=== PATIENT | male | born 1945 | race Caucasian/White ===

== ENCOUNTER 2021-12-17 12:00 | Emergency (ER) | payer MEDICARE ==
[2021-12-17] VITALS (8 sets, daily range): BP systolic 88–118; BP diastolic 56–67
[~2021-12-17] VITALS: Ht 172.7 cm; Wt 81.8 kg
[2021-12-17] MEDS ORDERED: ALEVE220 M2 PO (12:20)
[2021-12-17 13:54] LABS: HEMOGLOBIN 10.8 g/dl (14.0-18.0); IMMATURE GRANULOCYTES 0.1 % (0.0-5.0); MEAN CELL VOLUME 86.1 fL CALC (80.0-100.0); MEAN CORPUSCULAR HGB 27.3 pG CALC (26.0-32.0); MEAN CORPUSCULAR HGB CONC 31.8 g/dL CAL (32.0-36.0); NEUT# 5.46 thou/uL (1.82-7.42); RED BLOOD COUNT 3.95 mill/uL (4.70-6.10); RED CELL DISTRI WIDTH 15.8 % (11.5-15.5)
[2021-12-17 14:12] LABS: ALBUMIN 3.8 g/dL (3.2-5.0); ALKALINE PHOSPHATASE 53 u/l (38-126); ANION GAP 11 (6-22 (CALC)); BILIRUBIN, TOTAL 0.4 mg/dL (0.0-1.4); BUN 28 mg/dL (8-23); BUN/CREATININE RATIO 22 (12-20 (CALC)); CARBON DIOXIDE 29 mmol/l (22-30); CHLORIDE 105 mmol/l (95-108); CREATININE 1.3 mg/dL (0.7-1.3); GFR FOR AFR.AMER. > 60 ML/MIN (>=60 (CALC)); GFR OTHER RACES 53 ML/MIN (>=60 (CALC)); POTASSIUM 4.9 mmol/l (3.5-5.1); SGOT/AST 26 u/l (19-48); SODIUM 140 mmol/l (137-146); TOTAL PROTEIN 7.3 g/dL (6.3-8.2)
[2021-12-17] MEDS ORDERED: ULTRAM50 M1 PO (15:32)
== END 2021-12-17 15:55 | disposition home or self-care (01) ==
LOC: ED 12:00
PROVIDERS: Nurse Practitioner
DX: S80.11XA Contusion of right lower leg, initial encounter (principal); I10 Essential (primary) hypertension; I48.91 Unspecified atrial fibrillation; X58.XXXA Exposure to other specified factors, initial encounter
CPT/HCPCS: Q9967

== ENCOUNTER 2022-01-09 09:20 | Emergency (ER) | payer MEDICARE ==
[~2022-01-09] VITALS: Ht 172.7 cm; Wt 70.8 kg
[2022-01-09] VITALS (8 sets, daily range): BP systolic 76–124; BP diastolic 44–76
[~2022-01-09 09:20] MED LIST: ALEVE220 M2 PO; ULTRAM50 M1 PO
[2022-01-09] MEDS ORDERED: ELIQUIS5 MG PO (09:57)
[2022-01-09 10:01] LABS: HEMATOCRIT 33.5 % (39.0-50.0); HEMOGLOBIN 10.6 g/dl (14.0-18.0); IMMATURE GRANULOCYTES 0.3 % (0.0-5.0); MEAN CELL VOLUME 86.1 fL CALC (80.0-100.0); MEAN CORPUSCULAR HGB 27.2 pG CALC (26.0-32.0); MEAN CORPUSCULAR HGB CONC 31.6 g/dL CAL (32.0-36.0); NEUT# 5.6 thou/uL (1.82-7.42); RED BLOOD COUNT 3.89 mill/uL (4.70-6.10); RED CELL DISTRI WIDTH 15.6 % (11.5-15.5)
[2022-01-09] MEDS ORDERED: IRON27 MG PO (10:02)
[2022-01-09] MEDS ORDERED: EZETIMIBE10 MG (10:11)
[2022-01-09] MEDS ORDERED: VENLAFAXINE37.5 MG PO (10:12)
[2022-01-09] MEDS ORDERED: PROTONIX40 M2 PO (10:12)
[2022-01-09] MEDS ORDERED: METOPROL TAR25 MG PO (10:13)
[2022-01-09] MEDS ORDERED: DIGOXIN0.125 MG PO (10:13)
[2022-01-09] MEDS ORDERED: MELATONIN1 MG PO (10:13)
[2022-01-09 10:27] LABS: ALBUMIN 4.1 g/dL (3.2-5.0); ALKALINE PHOSPHATASE 51 u/l (38-126); ANION GAP 13 (6-22 (CALC)); BILIRUBIN, TOTAL 0.4 mg/dL (0.0-1.4); BUN 27 mg/dL (8-23); BUN/CREATININE RATIO 24 (12-20 (CALC)); CARBON DIOXIDE 26 mmol/l (22-30); CHLORIDE 109 mmol/l (95-108); CREATININE 1.1 mg/dL (0.7-1.3); GFR FOR AFR.AMER. > 60 ML/MIN (>=60 (CALC)); GFR OTHER RACES > 60 ML/MIN (>=60 (CALC)); LIPASE 41 u/l (23-300); POTASSIUM 4.3 mmol/l (3.5-5.1); SGOT/AST 26 u/l (19-48); SODIUM 144 mmol/l (137-146); TOTAL PROTEIN 7.3 g/dL (6.3-8.2)
[2022-01-09 10:44] LABS: URINE BILIRUBIN - DIPSTICK NEGATIVE (NEGATIVE); URINE BLOOD DIPSTICK NEGATIVE (NEGATIVE); URINE COLOR YELLOW; URINE GLUCOSE - DIPSTICK NEGATIVE (NEGATIVE); URINE KETONE TRACE mg/dL (NEGATIVE); URINE LEUK ESTERASE NEGATIVE (NEGATIVE); URINE PH 5.5 (4.5-8.0); URINE PROTEIN - DIPSTICK NEGATIVE (NEG-TRACE); URINE SPECIFIC GRAVITY >=1.030; URINE UROBILINOGEN - DIPSTICK 0.2 E.U./dL (0.2)
[2022-01-09 10:53] LABS: URINE NITRITE - DIPSTICK NEGATIVE (Negative)
== END 2022-01-09 15:30 | disposition home or self-care (01) ==
LOC: ED 09:20
PROVIDERS: Family Medicine
DX: A04.0 Enteropathogenic Escherichia coli infection (principal); I48.91 Unspecified atrial fibrillation

== ENCOUNTER 2022-01-14 14:20 | Emergency (ER) | payer MEDICARE ==
[~2022-01-14] VITALS: Ht 172.7 cm; Wt 72.7 kg
[~2022-01-14 14:20] MED LIST changes: +DIGOXIN0.125 MG PO; +ELIQUIS5 MG PO; +EZETIMIBE10 MG; +IRON27 MG PO; +MELATONIN1 MG PO; +METOPROL TAR25 MG PO; +PROTONIX40 M2 PO; +VENLAFAXINE37.5 MG PO
[2022-01-14 14:48] VITALS: BP 166/136
[2022-01-14 14:52] VITALS: BP 94/56
[2022-01-14 15:00] VITALS: BP 94/58
[2022-01-14 15:03] VITALS: BP 101/66
[2022-01-14] MEDS ORDERED: CIPROFLOXACN500 MG PO (15:06)
[2022-01-14 15:09] VITALS: BP 101/66
== END 2022-01-14 15:15 | disposition home or self-care (01) ==
LOC: ED 14:20
DX: A04.0 Enteropathogenic Escherichia coli infection (principal); I48.91 Unspecified atrial fibrillation

== ENCOUNTER 2022-03-15 11:24 | Emergency (ER) | payer MEDICARE, BC ==
[~2022-03-15] VITALS: Ht 172.7 cm; Wt 72.0 kg
[~2022-03-15 11:24] MED LIST changes: +CIPROFLOXACN500 MG PO
[2022-03-15 11:46] VITALS: BP 101/68
[2022-03-15] MEDS ORDERED: CORTISPORIN OTI10 M2 AS (11:50)
== END 2022-03-15 12:06 | disposition home or self-care (01) ==
LOC: ED 11:24
DX: H60.92 Unspecified otitis externa, left ear (principal); H93.11 Tinnitus, right ear; I48.91 Unspecified atrial fibrillation